=== PATIENT | male | born 1955 | race Two or more races ===

== ENCOUNTER 2018-11-04 09:29 | Outpatient (CLI) | payer OTHER | END 2018-11-04 11:40 | disposition home or self-care (01) | LOC: LAB 09:29 | DX: D64.89 Other specified anemias (principal); E11.29 Type 2 diabetes mellitus with other diabetic kidney complication; E78.2 Mixed hyperlipidemia; N40.1 Benign prostatic hyperplasia with lower urinary tract symptoms; E03.8 Other specified hypothyroidism; Z12.10 Encounter for screening for malignant neoplasm of intestinal tract, unspecified; M25.561 Pain in right knee ==

== ENCOUNTER 2018-11-22 08:38 | Outpatient (CLI) | payer OTHER | END 2018-11-22 08:42 | disposition home or self-care (01) | LOC: MRI 08:38 | DX: M25.561 Pain in right knee (principal) | CPT/HCPCS: 73721 ==

== ENCOUNTER 2019-01-05 15:18 | Emergency (ER) | payer OTHER ==
[~2019-01-05] VITALS: Ht 177.8 cm; Wt 95.3 kg
== END 2019-01-05 17:18 | disposition home or self-care (01) ==
LOC: ER 15:18
DX: S61.220A Laceration with foreign body of right index finger without damage to nail, initial encounter (principal); W45.8XXA Other foreign body or object entering through skin, initial encounter; Y93.89 Activity, other specified; Y92.89 Other specified places as the place of occurrence of the external cause; Y99.8 Other external cause status

== ENCOUNTER 2020-02-27 23:20 | Emergency (ER) | payer OTHER ==
[~2020-02-27] VITALS: Ht 177.8 cm; Wt 99.8 kg
[2020-02-27] MEDS ORDERED: QUINAPRIL HCL40 MG (23:26)
[2020-02-27] MEDS ORDERED: NALOXONE H0.4 MG/12 (23:26)
[2020-02-27] MEDS ORDERED: VERAPAMIL ER240 MG (23:26)
[2020-02-27] MEDS ORDERED: SUPREP BOWEL P354 ML (23:27)
[2020-02-27] MEDS ORDERED: DICLOFENAC SODI75 MG (23:27)
[2020-02-27] MEDS ORDERED: SUBLIMAZE50 MCG/1 M (23:27)
[2020-02-28] MEDS ORDERED: TAMS0.4C PO (03:57)
[2020-02-28] MEDS ORDERED: KETO10TA2 PO (03:57)
== END 2020-02-28 05:05 | disposition home or self-care (01) ==
LOC: ER 23:20
DX: N13.2 Hydronephrosis with renal and ureteral calculous obstruction (principal); E11.65 Type 2 diabetes mellitus with hyperglycemia; R10.31 Right lower quadrant pain; Z03.818 Encounter for observation for suspected exposure to other biological agents ruled out

== ENCOUNTER 2021-04-20 21:00 | Emergency (ER) | payer OTHER ==
[~2021-04-20] VITALS: Ht 177.8 cm; Wt 99.8 kg
[~2021-04-20 21:00] MED LIST: DICLOFENAC SODI75 MG; KETO10TA2 PO; NALOXONE H0.4 MG/12; QUINAPRIL HCL40 MG; SUBLIMAZE50 MCG/1 M; SUPREP BOWEL P354 ML; TAMS0.4C PO; VERAPAMIL ER240 MG
[2021-04-21] MEDS ORDERED: IBU800 MG PO (00:23)
== END 2021-04-21 00:30 | disposition home or self-care (01) ==
LOC: ER 21:00
DX: M54.2 Cervicalgia (principal)